=== PATIENT | male | born 1935 | race Caucasian/White ===

== ENCOUNTER 2016-07-24 13:47 | Observation (INO) | payer MEDICARE, OTHER ==
[2016-07-24 14:24] LABS: Mean Cell Volume 92.3 fl (78-100); Mean Corpuscular Hemoglobin 27.1 pg (27-31); Mean Corpuscular Hgb Conc 29.4 g/dl (32-36); Mean Platelet Volume 8.6 fl (6.0-9.5); Neutrophil # 2.4 K/mm3 (1.3-6.0); Neutrophil % 64.1 % (42-75.0); Platelet Count 284 K/mm3 (150-450); Red Blood Count 2.47 M/mm3 (4.7-6.0); Red Cell Distribution Width 15.6 % (11.5-14.0); White Blood Count 3.7 K/mm3 (4.0-10.5)
[2016-07-24 14:32] LABS: Hemoglobin 6.7 gm/dL (13.5-18.0)
[2016-07-24 14:33] LABS: Hematocrit 22.8 % (42.0-52.0)
[2016-07-24 14:38] LABS: Albumin * 3.6 gm/dl (3.4-5.0); Anion Gap 10.3 mmol/L (6.8-13.8); BUN/Creatinine Ratio 16.4 (9.0-21.6); Bilirubin, Total 0.3 mg/dL (0.0-1.1); Carbon Dioxide 30.4 mmol/L (24-32.6); Potassium 4.7 mmol/L (3.4-4.6); Total Protein 6.6 gm/dL (6.2-8.2)
--- NOTE | 2016-07-24 14:52 | ERNOTE ---
Medical Problem HPI - General Chief Complaint: General Assessment Time Seen by Provider: 07/24/16 14:39 Source: patient, family Exam Limitations: no limitations - Immun/Allergies/Home Medications Immunizations: IMMUNIZATION HX Immunizations Up to Date Yes History of Influenza Vaccine No Hx Pneumococcal Vaccination No Allergies/Adverse Reactions: Allergies nickel Adverse Reaction (Mild, Verified 01/15/15 12:50) RASH Home Medications: HOME MEDICATIONS Sertraline HCl [Zoloft] 50 mg PO DAILY 12/16/13 [Last Taken 05/26/15] Cholecalciferol (Vitamin D3) [Vitamin D3] 2,000 unit PO DAILY 03/06/14 [Last Taken 05/26/15] Atorvastatin Calcium [Lipitor] 20 mg PO HS 07/02/14 [Last Taken 05/26/15] Lisinopril [Zestril] 40 mg PO BID 07/02/14 [Last Taken 05/26/15] Pantoprazole Sodium [Protonix] 40 mg PO BIDAC #30 tab 10/27/14 [Last Taken ] Cyanocobalamin [Vitamin B-12] 500 mcg PO DAILY 12/12/14 [Last Taken 05/26/15] Aspirin [Aspirin Enteric Coated] 325 mg PO DAILY 01/14/15 [Last Taken 05/26/15] - History of Present History Narrative: Patient presents with progressive weakness and loss of overall stamina and energy. Patient was seen at [facility] earlier today and was found to have a hemoglobin of 7.1 for them. Patient was sent in to the emergency room for further evaluation and likely blood transfusion. Timing: constant Severity: mild Modifying Factors - (Worsens): Present: movement Review of Systems - Review of Systems Constitutional: Present: See HPI, weakness, fatigue EYE: Present: no symptoms reported ENT: Present: no symptoms reported Respiratory: Present: no symptoms reported Cardiology: Present: no symptoms reported Gastrointestinal/Abdominal: Present: no symptoms reported Genitourinary: Present: no symptoms reported Musculoskeletal: Present: no symptoms reported Skin: Present: no symptoms reported Neurological: Present: no symptoms reported Endocrine: Present: no symptoms reported Hematologic/Lymphatic: Present: no symptoms reported Psych: Present: no symptoms reported - Patient's Past Medical History Patient History - Medical: Anemia, Cataracts, GERD, Renal Disease Patient History - Cardiac/Respiratory: Hypertension, Hyperlipidemia Patient History - Cancer: No Hx of Cancer Patient History - Surgical Procedures: Colonoscopy, EGD, Other Patient History - Other: None - Family History Mother Family History - Medical: Family History - Cardiac/Respiratory: History Unknown Brother Family History - Medical: Diabetes Type 2 Family History - Cardiac/Respiratory: Hypertension Father Family History - Medical: , No pertinent hx Family History - Cardiac/Respiratory: Cardiac Arrest - Social History Living Situations: spouse Abuse History: No History of abuse Psych History: Hx of Anxiety, Current tx/ever been on anti-depressants or anti- anxiety meds Smoking Status: Never smoker Do you dip or chew tobacco: No Alcohol Use: none Drug Use: none - Immunizations Immunizations Up to Date: Yes Hx Pneumococcal Vaccination: No History of Influenza Vaccine: No Physical Exam - Physical Exam General Appearance: Present: wd/wn, alert, no apparent distress Eye Exam: Normal inspection: bilateral, PERRL: bilateral Ears, Nose, Throat: Present: normal ENT inspection, H, normal pharynx Neck: Present: normal inspection, nontender Respiratory: Present: no respiratory distress, normal breath sounds, no accessory muscle use, chest nontender, lungs clear Cardiovascular/Chest: Present: no murmur, normal peripheral pulses, bradycardia Gastrointestinal/Abdominal: Present: normal bowel sounds, nontender, nondistended, soft, no organomegaly Rectal Exam: Present: normal rectal tone, normal prostate Back Exam: Present: normal inspection, normal range of motion Extremity Exam: Present: normal inspection, non-tender, no edema, normal range of motion Neurological Exam: Present: alert, oriented, normal mood/affect Skin Exam: Present: normal color, warm/dry Lymphatic Exam: Present: no adenopathy ED Progress - Results and Orders Patient's Lab Results:: I have reviewed the patient's lab results. - Vital Signs Patient's Vital Signs:: I have reviewed the patient's vital signs. Vital Signs: Vital Signs 07/24/16 13:56 Temperature 36.6 C Pulse Rate 50 L Respiratory 14 Rate Blood Pressure 164/76 O2 Sat by Pulse 96 Oximetry - Progress/Reassessment Chief Complaint: General Assessment Plan - Plan Plan: While the patient is chronically anemic, unclear etiology for the precipitous drop in his hemoglobin. Patient will be admitted to an observation. He will be transfused 2 units of packed red blood cells and hemoglobin will be checked tomorrow morning. I suspect his weakness and lack of stamina is coming from his anemia. Departure - Departure Clinical Impression: Anemia Qualifiers: Anemia type: unspecified type Qualified Code(s): D64.9 - Anemia, unspecified Disposition: [facility] Condition: Fair
--- OUTSIDE RECORDS SUMMARY | 2016-07-24 15:05 | XMS REPORT | Continuity of Care Document ---
:1935 Author Organization [facility] ([facility]) Address [address] [address] Phone [phone] Care Team Providers Name Role Phone Rashawn Ortiz Primary Care Provider [phone] Source Comments This disclosure is being made pursuant to the Care Everywhere program, applicable federal and state laws, and may not contain all informaitonavailable regarding this patient.[facility] ([facility]) Active Allergies and Adverse Reactions No Known Allergies Current Medications Prescription Sig. Disp. Refills Start Date End Date Status aspirin, buffered 325 mg Take 325 mg by Active tablet mouth daily SERTraline 50 mg tablet Take 50 mg by Active mouth daily lisinopril 40 mg tablet Take 40 mg by Active mouth 2 times daily ferrous sulfate 325 mg Take 325 mg by Active (65 mg iron) tablet mouth daily cholecalciferol (VITAMIN Active D3) PO cyanocobalamin (VITAMIN Active B-12) PO atorvastatin 40 mg Take 40 mg by Active tablet mouth every evening amLODIPine 10 mg tablet Take 1 tablet 90 tablet 3 12/25/2014 Active (10 mg total) by mouth daily Active Problems Problem Noted Date Pulmonary hypertension 12/25/2014 Orthostatic hypotension 12/10/2014 Essential hypertension 12/10/2014 Hyperlipidemia 12/10/2014 Stenosis of left carotid artery 12/10/2014 Social History Tobacco Use Types Packs/Day Years Used Date Former Smoker Cigars Quit: 12/12/2011 Smokeless Tobacco: Never Used Tobacco Cessation:Counseling Given: Yes Comments: Last Filed Vital Signs Vital Sign Reading Time Taken Blood Pressure 120/60 02/19/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 Pulse 56 02/19/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 Temperature - - Respiratory Rate 18 12/11/2014 12:14 PM CDT Height 1.778 m (5' 10") 12/25/2014 12:57 PM CDT Weight 90.266 kg (199 lb) 02/19/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
--- OUTSIDE RECORDS SUMMARY | 2016-07-24 15:06 | XMS REPORT | Continuity of Care Document ---
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
[2016-07-24] MEDS: PANTOPRAZOLE SODIUM 40 MG TABLET.EC PO SCH (18:33)
[2016-07-24] MEDS: ROSUVASTATIN CALCIUM 10 MG TABLET PO SCH ×2 (18:33→20:48)
[2016-07-24] MEDS ORDERED: LISINOPRIL 10 MG TABLET ONE (20:55)
[2016-07-24] MEDS: LISINOPRIL 40 MG TABLET PO SCH (20:57)
--- NOTE | 2016-07-24 23:45 | HP ---
Chief Complaint - Chief Complaint Date of Service: 07/24/16 Time of Service: 16:25 Chief Complaint: Weakness, fatigue History of Present Illness: Wes is an 81 yo male, patient of Dr. Johansen, with known CKD and chronic anemia. He was seen at nephrology today where hgb was found to be 7.1. He reports fatigue and weakness that have been worsening. Review of records show that nephrology has suspected anemia to be more significant than his chronic kidney disease and had recommended hematology referral. Wes has not seen hematology as of this time. He denies visualized bleeding. - Patient's Past Medical History Patient History - Medical: Anemia, Cataracts, GERD, Renal Disease Patient History - Cardiac/Respiratory: Hypertension, Hyperlipidemia Patient History - Cancer: No Hx of Cancer Patient History - Surgical Procedures: Colonoscopy, EGD Patient History - Other: None - Family History Mother Family History - Medical: Family History - Cardiac/Respiratory: History Unknown Family History - Cancer: No pertinent family hx Brother Family History - Medical: Diabetes Type 2 Family History - Cardiac/Respiratory: Hypertension Family History - Cancer: No pertinent family hx Father Family History - Medical: , No pertinent hx Family History - Cardiac/Respiratory: Cardiac Arrest Family History - Cancer: No pertinent family hx - Social History Living Situations: home Abuse History: No History of abuse Psych History: Hx of Anxiety, Current tx/ever been on anti-depressants or anti- anxiety meds Smoking Status: Never smoker Have you smoked in the past 12 months: No Do you dip or chew tobacco: No Initiate information on Smoking Cessation: No Alcohol Use: none Drug Use: none - Immunizations Immunizations Up to Date: Yes Hx Pneumococcal Vaccination: No History of Influenza Vaccine: No Review Of Systems (GEN) - Review of Systems Generalized/Overall Review: Present: Weakness, Fatigue. Absent: Chills, Fever EENTM: Present: No Symptoms Reported Respiratory: Present: No Symptoms Reported Cardiac: Present: No Symptoms Reported Abdominal: Present: No Symptoms Reported Genitourinary: Present: No Symptoms Reported Musculoskeletal: Present: No Symptoms Reported Neurological: Present: No Symptoms Reported Skin: Present: No Symptoms Reported Endocrine: Present: No Symptoms Reported Immunizations: IMMUNIZATION HX Immunizations Up to Date Yes History of Influenza Vaccine No Hx Pneumococcal Vaccination No Allergies/Adverse Reactions: Allergies Allergy/AdvReac Type Severity Reaction Status Date / Time nickel AdvReac Mild RASH Verified 07/24/16 16:16 Home Medications: HOME MEDICATIONS Sertraline HCl [Zoloft] 50 mg PO DAILY 12/16/13 [Last Taken 05/26/15] Cholecalciferol (Vitamin D3) [Vitamin D3] 2,000 unit PO DAILY 03/06/14 [Last Taken 05/26/15] Cyanocobalamin [Vitamin B-12] 500 mcg PO DAILY 12/12/14 [Last Taken 05/26/15] Aspirin [Aspirin Enteric Coated] 325 mg PO DAILY 01/14/15 [Last Taken 05/26/15] Amlodipine Besylate 5 mg PO BID 07/24/16 [Last Taken Unknown] Atorvastatin Calcium [Lipitor] 40 mg PO HS 07/24/16 [Last Taken Unknown] Famotidine 20 mg PO BID 07/24/16 [Last Taken Unknown] hydrALAZINE HCL [Hydralazine HCl] 10 mg PO BID 07/24/16 [Last Taken Unknown] Lisinopril [Zestril] 10 mg PO BID #.1 tablet 08/03/16 [Last Taken Unknown] Exam - Exam Vital Signs: Vital Signs - Last Taken Temp 37.2 C 07/24/16 21:36 Pulse 50 L 07/24/16 21:36 Resp 20 07/24/16 21:36 BP 160/85 07/24/16 21:36 Pulse Ox 95 07/24/16 21:36 Constitutional: Present: Alert, Oriented x3, Cooperative ENT Exam: Present: hearing grossly normal Eye Exam: bilateral eye: normal inspection Respiratory: Present: lungs clear, normal breath sounds Cardiovascular/Chest: Present: regular rate, rhythm, no murmur Abdomen: Present: Normal bowel sounds, soft, nontender, nondistended Extremity: Present: normal inspection Skin Exam: Present: normal color, warm/dry, no cyanosis Diagnostic Studies: Abnormal Lab Results 07/24/16 Range/Units 15:13 Stool Occult Blood Positive H Laboratory Results WBC 3.7 K/mm3 (4.0-10.5) L 07/24/16 14:15 RBC 2.47 M/mm3 (4.7-6.0) L 07/24/16 14:15 Hgb 6.7 gm/dL (13.5-18.0) L* D 07/24/16 14:15 Hct 22.8 % (42.0-52.0) L* D 07/24/16 14:15 MCV 92.3 fl (78-100) 07/24/16 14:15 MCH 27.1 pg (27-31) 07/24/16 14:15 MCHC 29.4 g/dl (32-36) L 07/24/16 14:15 RDW 15.6 % (11.5-14.0) H 07/24/16 14:15 Plt Count 284 K/mm3 (150-450) 07/24/16 14:15 MPV 8.6 fl (6.0-9.5) 07/24/16 14:15 Immature Gran % (Auto) 0.30 % (0.001-0.429) 07/24/16 14:15 Immature Gran # (Auto) 0.01 K/mm3 (0.000-0.0310) 07/24/16 14:15 Neutrophils % 64.1 % (42-75.0) 07/24/16 14:15 Lymphocytes % 22.3 % (20-51) 07/24/16 14:15 Monocytes % 10.6 % (0.0-9) H 07/24/16 14:15 Eosinophils % 1.9 % (0.0-3.0) 07/24/16 14:15 Basophils % 0.8 % (0.0-1.0) 07/24/16 14:15 Nucleated RBC % 0.0 k/mm3 (0-1) 07/24/16 14:15 Neutrophils # 2.4 K/mm3 (1.3-6.0) 07/24/16 14:15 Lymphocytes # 0.8 k/mm3 (1.5-3.5) L 07/24/16 14:15 Monocytes # 0.4 k/mm3 (0.0-1.0) 07/24/16 14:15 Eosinophils # 0.1 k/mm3 (0.0-0.7) 07/24/16 14:15 Absolute Basophils 0.0 k/mm3 (0.0-0.1) 07/24/16 14:15 Sodium 146 mmol/L (132-142) H 07/24/16 14:15 Plasma Sodium 146 mmol/L (130-142) H 07/24/16 14:15 Potassium 4.7 mmol/L (3.4-4.6) H 07/24/16 14:15 Chloride 110 mmol/L (97-106) H 07/24/16 14:15 Carbon Dioxide 30.4 mmol/L (24-32.6) 07/24/16 14:15 Anion Gap 10.3 mmol/L (6.8-13.8) 07/24/16 14:15 BUN 35 mg/dL (6-23) H 07/24/16 14:15 Creatinine 2.14 mg/dL (0.4-1.4) H 07/24/16 14:15 Est GFR (Non-Af Amer) 32 mL/min (60-130) L 07/24/16 14:15 BUN/Creatinine Ratio 16.4 (9.0-21.6) 07/24/16 14:15 Random Glucose 122 mg/dL (70-110) H 07/24/16 14:15 Calcium 9.0 mg/dL (7.9-10.9) 07/24/16 14:15 Calcium Adj for Albumin 9.0 mg/dL (8.4-10.2) 07/24/16 14:15 Total Bilirubin 0.3 mg/dL (0.0-1.1) 07/24/16 14:15 AST 21 U/L (0-48) 07/24/16 14:15 ALT 20 U/L (19-67) 07/24/16 14:15 Alkaline Phosphatase 77 U/L (50-170) 07/24/16 14:15 Total Protein 6.6 gm/dL (6.2-8.2) 07/24/16 14:15 Albumin 3.6 gm/dl (3.4-5.0) 07/24/16 14:15 Stool Occult Blood Positive H 07/24/16 15:13 Blood Type O Positive 07/24/16 14:15 Antibody Screen Negative 07/24/16 14:15 Crossmatch See Detail 07/24/16 14:15 Assessment/Plan - Assessment/Plan (1) Anemia Assessment: Wes is an 81 yo male that presented to the ER with Anemia. Hemoglobin was found to be 6.7 which was worse than earlier today of 7.1 ( although from a different lab). 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 He has not seen hematology at this point. Hemoccult stool is positive. No gross bleeding is evidence per the patient. Due to hgb of 6.7 will transfuse 2 units of pRBCs and monitor Hgb. Suspect this is acute worsening of a chronic condition and expect to transfuse and be able to discharge to home tomorrow if stable. Expect 1 midnight, will admit to observation. Problem: Chronic Qualifiers: Anemia type: unspecified type Qualified Code(s): D64.9 - Anemia, unspecified (2) CKD (chronic kidney disease) stage 3, GFR 30-59 ml/min Problem: Chronic
[2016-07-25] MEDS ORDERED: FUROSEMIDE 10 MG/ML VIAL IV ONE (00:29)
[2016-07-25 01:22] LABS: Hematocrit 26.2 % (42.0-52.0); Hemoglobin 8.1 gm/dL (13.5-18.0)
[2016-07-25 06:09] LABS: Hematocrit 27.1 % (42.0-52.0); Hemoglobin 8.3 gm/dL (13.5-18.0); Mean Cell Volume 87.1 fl (78-100); Mean Corpuscular Hemoglobin 26.7 pg (27-31); Mean Corpuscular Hgb Conc 30.6 g/dl (32-36); Neutrophil % 56.4 % (42-75.0); Platelet Count 257 K/mm3 (150-450); Red Blood Count 3.11 M/mm3 (4.7-6.0); White Blood Count 3.6 K/mm3 (4.0-10.5)
[2016-07-25 06:24] LABS: Anion Gap 9.5 mmol/L (6.8-13.8); BUN/Creatinine Ratio 16.8 (9.0-21.6); Calcium * 9.1 mg/dL (7.9-10.9); Carbon Dioxide 29.3 mmol/L (24-32.6); Estimated Creat Clear 32.4; Potassium 4.8 mmol/L (3.4-4.6)
[2016-07-25] MEDS: PANTOPRAZOLE SODIUM 40 MG TABLET.EC PO SCH (07:00)
[2016-07-25] MEDS: LISINOPRIL 40 MG TABLET PO SCH (08:11)
[2016-07-25] MEDS ORDERED: FAMOTIDINE 20 MG TABLET PO SCH (09:00)
[2016-07-25] MEDS ORDERED: SERTRALINE HCL 50 MG TABLET PO SCH (09:00)
[2016-07-25] MEDS ORDERED: hydrALAZINE HCL 10 MG TABLET PO SCH (09:00)
[2016-07-25] MEDS ORDERED: amLODIPine BESYLATE 5 MG TABLET PO SCH (09:00)
[2016-07-25] MEDS ORDERED: CHOLECALCIFEROL 1,000 UNIT CAPSULE PO SCH (09:00)
[2016-07-25] MEDS ORDERED: CYANOCOBALAMIN 1,000 MCG TABLET PO SCH (09:00)
[2016-07-25 10:14] VITALS: BP 142/56
--- NOTE | 2016-07-25 10:51 | DS ---
(1) Anemia Diagnosis(s): Wes is an 81 yo male that was admitted for hemoglobin of 6.7. This is an acute worsening of his chronic anemia. Anemia is suspected to be from CKDIII. However nephrology feels his Hgb is significantly lower than would be explained by his CKDIII and had recommended him to see hematology for consideration of a bone marrow biopsy. He has not seen gross bleeding. He was admitted due to the acute change and positive hemoccult stool. He was transfused 2 units of pRBCs and had serial hemoglobin. These were unchanged and he had no evidence of significant active bleeding. He will be discharged to home. He will follow up with nephrology and will be referred to hematology. He will be referred to general surgery for colonoscopy and EGD to evaluate for other causes of anemia, especially considering the hemoccult positive stool. Problem: Chronic Qualifiers: Anemia type: unspecified type Qualified Code(s): D64.9 - Anemia, unspecified Procedures Performed: none Discharge Disposition: Home self care Disposition: Home self-care Condition: Good Discharge Activity: Activity as tolerated Discharge Diet: General/regular food Referrals: Ishaan Alford MD [Staff Physician] - (Colonoscopy/EGD? Next available (can't do 08/04/16)) Rashawn Ortiz MD [Primary Care Provider] - One Week (Can't do 08/04/16) Problem Oriented Discharge Instructions to Patient/Family: Anemia, Nonspecific Additional Patient Instructions (free text): Continue all home medications, no changes made. Follow up with Nephrology on 08/04/16 to discuss hematology referral. Needs endoscopy evaluation with anemia and blood positive stools. [facility] will call you on Tuesday with follow up appointments. Complete Home Medications List: Complete Home Medication List: Sertraline HCl [Zoloft] 50 mg PO DAILY 12/16/13 Cholecalciferol (Vitamin D3) [Vitamin D3] 2,000 unit PO DAILY 03/06/14 Cyanocobalamin [Vitamin B-12] 500 mcg PO DAILY 12/12/14 Aspirin [Aspirin Enteric Coated] 325 mg PO DAILY 01/14/15 Amlodipine Besylate 5 mg PO BID 07/24/16 Atorvastatin Calcium [Lipitor] 40 mg PO HS 07/24/16 Famotidine 20 mg PO BID 07/24/16 hydrALAZINE HCL [Hydralazine HCl] 10 mg PO BID 07/24/16 Lisinopril [Zestril] 10 mg PO BID #.1 tablet 08/03/16
[2016-07-25] MEDS ORDERED: ATORVASTATIN CALCIUM 40 MG TABLET PO SCH (21:00)
== END 2016-07-25 12:30 | disposition home or self-care (01) ==
LOC: ER 13:47 → MS 15:02
PROVIDERS: ADMIT Family Medicine; ATTEND Family Medicine
PROC: 30233N1 Transfusion of Nonautologous Red Blood Cells into Peripheral Vein, Percutaneous Approach (ICD-10-PCS; principal; 2016-07-24)
DX: D64.9 Anemia, unspecified (principal); K92.1 Melena; I12.9 Hypertensive chronic kidney disease with stage 1 through stage 4 chronic kidney disease, or unspecified chronic kidney disease; N18.3 Chronic kidney disease, stage 3 (moderate); D63.1 Anemia in chronic kidney disease; E78.5 Hyperlipidemia, unspecified; K21.9 Gastro-esophageal reflux disease without esophagitis
CPT/HCPCS: 36415; 36430; 80048; 80053; 82272; 85014; 85018; 85025; 86850; 86900; 96374; 99282; G0378; P9016

== ENCOUNTER 2016-08-02 12:16 | Observation (INO) | payer MEDICARE, OTHER ==
--- OUTSIDE RECORDS SUMMARY | 2016-08-02 12:20 | XMS REPORT | Continuity of Care Document ---
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
[2016-08-02] MEDS ORDERED: diphenhydrAMINE HCL 50 MG/ML VIAL IV ONE (14:00)
[2016-08-02] MEDS ORDERED: METHYLPREDNISOLONE SOD SUCC 30 MG in WATER FOR INJ.,BACTERIOSTATIC 0 ML IV ONE (14:00)
[2016-08-02] MEDS: DEXTROSE 5 % IN WATER 1,000 ML IV PRN ×2 (14:14→20:51)
[2016-08-02] MEDS ORDERED: FERUMOXYTOL 510 MG in NORMAL SALINE 100 ML IV ONE (14:30)
[2016-08-02] MEDS ORDERED: FERUMOXYTOL 30 MG/ML VIAL IV ONE (14:30)
--- NOTE | 2016-08-02 16:57 | HP ---
Addendum entered and electronically signed by Marcelle Tavarez ARNP 08/02/16 17: 12: Original Note: Chief Complaint - Chief Complaint Date of Service: 08/02/16 Time of Service: 15:35 Chief Complaint: fatigue, dehydration History of Present Illness: Wes is an 81 year old male patient of Dr. Ortiz with a PMH of CKD stage 3, anemia (iron def and B12 def), carotid stenosis s/p left carotid stent 08/2013, GERD, HTN, and HLD that present to Dr. Ortiz's office today with c/o of fatigue. Outpatient labs revealed significant dehydration and CLARISSE. Patient will be admitted for observation and IV hydration. - Patient's Past Medical History Patient History - Medical: Anemia, Cataracts, GERD, Renal Disease Patient History - Cardiac/Respiratory: Hypertension, Hyperlipidemia Patient History - Cancer: No Hx of Cancer Patient History - Surgical Procedures: Colonoscopy, EGD, Other Patient History - Other: None - Family History Mother Family History - Medical: Family History - Cardiac/Respiratory: History Unknown Family History - Cancer: No pertinent family hx Brother Family History - Medical: Diabetes Type 2 Family History - Cardiac/Respiratory: Hypertension Family History - Cancer: No pertinent family hx Father Family History - Medical: , No pertinent hx Family History - Cardiac/Respiratory: Cardiac Arrest Family History - Cancer: No pertinent family hx - Social History Living Situations: home Abuse History: No History of abuse Psych History: Hx of Anxiety, Current tx/ever been on anti-depressants or anti- anxiety meds Alcohol Use: none Drug Use: none - Immunizations Immunizations Up to Date: Yes Hx Pneumococcal Vaccination: No History of Influenza Vaccine: No Review Of Systems (GEN) - Review of Systems Generalized/Overall Review: Present: Fatigue EENTM: Present: No Symptoms Reported Respiratory: Present: No Symptoms Reported Cardiac: Present: No Symptoms Reported Abdominal: Present: No Symptoms Reported Genitourinary: Present: No Symptoms Reported Musculoskeletal: Present: No Symptoms Reported Neurological: Present: No Symptoms Reported Skin: Present: No Symptoms Reported Endocrine: Present: No Symptoms Reported Misc: All systems neg except as marked Immunizations: IMMUNIZATION HX Immunizations Up to Date Yes History of Influenza Vaccine No Hx Pneumococcal Vaccination No Allergies/Adverse Reactions: Allergies Allergy/AdvReac Type Severity Reaction Status Date / Time nickel AdvReac Mild RASH Verified 07/24/16 16:16 Home Medications: HOME MEDICATIONS Sertraline HCl [Zoloft] 50 mg PO DAILY 12/16/13 [Last Taken 05/26/15] Cholecalciferol (Vitamin D3) [Vitamin D3] 2,000 unit PO DAILY 03/06/14 [Last Taken 05/26/15] Lisinopril [Zestril] 40 mg PO BID 07/02/14 [Last Taken 05/26/15] Cyanocobalamin [Vitamin B-12] 500 mcg PO DAILY 12/12/14 [Last Taken 05/26/15] Aspirin [Aspirin Enteric Coated] 325 mg PO DAILY 01/14/15 [Last Taken 05/26/15] Amlodipine Besylate 5 mg PO BID 07/24/16 [Last Taken Unknown] Atorvastatin Calcium [Lipitor] 40 mg PO HS 07/24/16 [Last Taken Unknown] Famotidine 20 mg PO BID 07/24/16 [Last Taken Unknown] hydrALAZINE HCL [Hydralazine HCl] 10 mg PO BID 07/24/16 [Last Taken Unknown] Exam - Exam Vital Signs: Vital Signs - Last Taken Temp 37.1 C 07/25/16 10:13 Pulse Resp BP 142/56 07/25/16 10:13 Pulse Ox Constitutional: Present: Alert, Oriented x3, Cooperative, No distress ENT Exam: Present: hearing grossly normal Eye Exam: bilateral eye: normal inspection Neck: Present: full range of motion, supple Back Exam: Present: normal inspection, no vertebral tenderness Respiratory: Present: chest non-tender, lungs clear, normal breath sounds, no respiratory distress Cardiovascular/Chest: Present: normal peripheral pulses, regular rate, rhythm Peripheral Pulses: dorsalis-pedis (R): 2+, dorsalis-pedis (L): 2+, radial (R): 2 +, radial (L): 2+ Abdomen: Present: soft, nontender, nondistended Extremity: Present: non-tender, normal inspection Skin Exam: Present: normal color, warm/dry, no cyanosis Diagnostic Studies: Laboratory Tests 08/02/16 08/02/16 08/02/16 10:48 10:48 10:48 WBC 3.2 L RBC 3.63 L Hgb 9.8 L Hct 32.2 L Plt Count 297 Neutrophils % 64.2 Sodium 144 H Potassium 5.4 H Chloride 110 H Carbon Dioxide 28.1 BUN 46 H Creatinine 2.24 H Est GFR (Non-Af Amer) 30 L Random Glucose 111 H Calcium 9.4 Phosphorus 3.8 Magnesium 2.3 Iron 61 TIBC 395 Transferrin % Sat 15 Assessment/Plan - Narrative Narrative: Acute Kidney Injury / Chronic Kidney Disease - Stage 3 - secondary to dehydration due to poor oral intake - rehydrate with IV fluids - due to hypernatremia, will rehydrate with D5W - Recheck labs in the am. - Creatinine on admission (08/02/16) is 2.24, baseline runs 1.4-1.6. Dehydration - due to poor oral intake - rehydrate with IV fluids - check labs in the am. Hypernatremia - likely due to unreplaced water loss - rehydrate with IV fluids - currently receiving D5W - check labs in the am. Hyperkalemia - likely due to volume depletion secondary to poor oral intake in the setting of acute on chronic kidney disease. - rehydrate with IV fluids - currently receiving D5W - checks labs in the am. Iron deficiency anemia - iron saturation at 15% per iron panel done 08/02/16 - Fereheme 510 mg given IV x1 on 08/02/16 - premedicated with benadryl 25 mg iv x1, infused without reaction. Chronic Medical Issues - Hypertension - stable - monitor bp q 4 hours - HLD - stable. Code Status: Full Code VTE: early ambulation GI proph: on pepcid bid at home. - Assessment/Plan (1) CLARISSE (acute kidney injury) Problem: Acute (2) Dehydration Problem: Acute (3) CKD (chronic kidney disease) stage 3, GFR 30-59 ml/min Problem: Chronic (4) Iron deficiency anemia Problem: Chronic Qualifiers: Iron deficiency anemia type: unspecified iron deficiency Qualified Code(s) : D50.9 - Iron deficiency anemia, unspecified (5) Acute hypernatremia Problem: Acute (6) Hyperkalemia Problem: Acute (7) Hypertension Problem: Chronic Qualifiers: Hypertension type: essential hypertension Qualified Code(s): I10 - Essential (primary) hypertension (8) Hyperlipemia Problem: Chronic Qualifiers: Hyperlipidemia type: unspecified Qualified Code(s): E78.5 - Hyperlipidemia , unspecified
[2016-08-02] MEDS ORDERED: INFLUENZA VACCINE 60 MCG/0.5 ML IM ONE (17:00)
[2016-08-02] MEDS ORDERED: ATORVASTATIN CALCIUM 40 MG TABLET PO SCH (23:15)
[2016-08-02] MEDS ORDERED: LISINOPRIL 10 MG TABLET ONE (23:29)
[2016-08-02] MEDS ORDERED: LISINOPRIL 20 MG TABLET PO SCH (23:30)
[2016-08-02] MEDS ORDERED: ATORVASTATIN CALCIUM 40 MG TABLET ONE (23:31)
[2016-08-02] MEDS: amLODIPine BESYLATE 5 MG TABLET PO SCH (23:34)
[2016-08-02] MEDS: hydrALAZINE HCL 10 MG TABLET PO SCH (23:37)
[2016-08-03] MEDS: DEXTROSE 5 % IN WATER 1,000 ML IV PRN ×2 (03:34→10:18)
[2016-08-03 05:56] LABS: Hematocrit 27.7 % (42.0-52.0); Hemoglobin 8.6 gm/dL (13.5-18.0); Mean Cell Volume 86.8 fl (78-100); Mean Platelet Volume 8.5 fl (6.0-9.5); Neutrophil % 80.4 % (42-75.0); Platelet Count 230 K/mm3 (150-450); Red Blood Count 3.19 M/mm3 (4.7-6.0); Red Cell Distribution Width 15.3 % (11.5-14.0)
[2016-08-03 06:09] LABS: Anion Gap 12.4 mmol/L (6.8-13.8); BUN/Creatinine Ratio 20.2 (9.0-21.6); Calcium * 8.9 mg/dL (7.9-10.9); Carbon Dioxide 25.7 mmol/L (24-32.6); Estimated Creat Clear 35.8; Potassium 5.1 mmol/L (3.4-4.6)
[2016-08-03] MEDS: hydrALAZINE HCL 10 MG TABLET PO SCH (08:56)
[2016-08-03] MEDS: amLODIPine BESYLATE 5 MG TABLET PO SCH (08:58)
[2016-08-03] MEDS ORDERED: FAMOTIDINE 20 MG TABLET PO SCH (09:00)
[2016-08-03] MEDS ORDERED: CHOLECALCIFEROL 1,000 UNIT CAPSULE PO SCH (09:00)
[2016-08-03] MEDS ORDERED: CYANOCOBALAMIN 1,000 MCG TABLET PO SCH (09:00)
[2016-08-03] MEDS ORDERED: ASPIRIN 81 MG TABLET.DR PO SCH (09:00)
[2016-08-03] MEDS ORDERED: SERTRALINE HCL 50 MG TABLET PO SCH (09:00)
--- NOTE | 2016-08-03 09:53 | DS ---
(1) CLARISSE (acute kidney injury) Diagnosis(s): due to dehydration with hypernatremia, hyperchloremia and hyperkalemia Problem: Acute (2) Iron deficiency anemia Diagnosis(s): T sat 15%; given Feraheme 510 mg IV 1 after being premedicated with diphenhydramine 25 mg IV 1 and Solu-Medrol 30 mg IV 1. Problem: Chronic Qualifiers: Iron deficiency anemia type: unspecified iron deficiency Qualified Code(s) : D50.9 - Iron deficiency anemia, unspecified (3) Hypertension Problem: Chronic Qualifiers: Hypertension type: essential hypertension Qualified Code(s): I10 - Essential (primary) hypertension (4) Hyperlipidemia Problem: Acute Qualifiers: Hyperlipidemia type: unspecified Qualified Code(s): E78.5 - Hyperlipidemia , unspecified (5) Carotid artery disease Diagnosis(s): LEFT carotid endarterectomy Problem: Chronic Description of Stay: DATE OF ADMISSION: 08/02/2016. DATE OF DISCHARGE: 08/03/2016. HOSPITAL COURSE: Wes Hoff is a 81-year-old WM with a history of HTN, HLD, CKD stage III/IV, anemia due to iron/B12 deficiency and carotid artery disease [ LT carotid endarterectomy in 2013] who came into the office for a follow-up after being admitted for anemia [with H&H 6.7/22.8 on 07/24/2016; transfuse with PRBC 2 with H&H posttransfusion being 8.1/26.2 on 07/25/2016]. Patient complained of dizziness and lightheadedness especially while standing up. Labs revealed increased BUN/CR 46/2.24. Patient was admitted for IV fluids. Patient was given D5W at 150 mL an hour. He did have a EGD/colonoscopy in 06/2014[colonoscopy revealing severe diverticulosis; EGD showing gastritis with erosions and friability]. Patient was on PPIs in the past, currently on H2 blockers because of CKD. T sat 15%. Patient was given Feraheme 510 mg IV 1 after being premedicated with diphenhydramine 25 mg IV 1 and Solu-Medrol 30 mg IV 1. Patient tolerated the transfusion well. Lisinopril 20 mg at bedtime was changed to 10 mg PO BID. Discussed with Sofie Conner NP the changes in medications and the possibility of Epogen/Aranesp in the future. BUN/CR improved to 37/1.78 at the time of discharge. He was discharged in a stable condition. A total of 50 minutes was spent in this encounter-including examination of the patient, discussing plan of care, reconciliation of medications preparation and dictating discharge summary. Also discussed the case with Sofie Conner COREMAKER in nephrology. Procedures Performed: none Results and Findings: Laboratory Tests 07/24/16 08/02/16 08/03/16 14:15 10:48 05:56 WBC 3.7 L 3.2 L 5.0 D Hgb 6.7 L* D 9.8 L 8.6 L Hct 22.8 L* D 32.2 L 27.7 L Plt Count 284 297 230 07/25/16 08/02/16 08/03/16 05:45 10:48 05:56 Plasma Sodium 144 H 144 H 142 Potassium 4.8 H 5.4 H 5.1 H Chloride 110 H 110 H 107 H Carbon Dioxide 29.3 28.1 25.7 BUN 33 H 46 H 36 H Creatinine 1.96 H 2.24 H 1.78 H D Est GFR (Non-Af Amer) 35 L 30 L 39 L D 08/02/16 10:48 Iron 61 TIBC 395 Transferrin % Sat 15 Vitamin B12 1022 H Discharge Disposition: Home self care Disposition: Home self-care Condition: Undetermined Discharge Activity: Activity as tolerated Discharge Diet: Low salt, Low fat/chol, High Fiber Referrals: Rashawn Ortiz MD [Primary Care Provider] - Problem Oriented Discharge Instructions to Patient/Family: Acute Kidney Injury Additional Patient Instructions (free text): Appointment with Sofie Conner on TuesdayAugust 10 at 10:30 at [facility]. Patient encouraged to drink between 2-3 L of water in 24 hours. Appt with in 10 days with [facility]. Follow up with Dr. Ortiz 08/13 at 10:00 Please have Labs done ONE day before appt. NEW/ CHANGES IN MEDS: Lisinopril 20 mg at HS changed to 10 mg PO BID. MEDS DISCONTINUED : Lisinopril 20 mg PO HS. Prescriptions (Any new or edited meds): Lisinopril [Zestril] 10 mg PO BID #.1 tablet Complete Home Medications List: Complete Home Medication List: Sertraline HCl [Zoloft] 50 mg PO DAILY 12/16/13 Cholecalciferol (Vitamin D3) [Vitamin D3] 2,000 unit PO DAILY 03/06/14 Cyanocobalamin [Vitamin B-12] 500 mcg PO DAILY 12/12/14 Aspirin [Aspirin Enteric Coated] 325 mg PO DAILY 01/14/15 Amlodipine Besylate 5 mg PO BID 07/24/16 Atorvastatin Calcium [Lipitor] 40 mg PO HS 07/24/16 Famotidine 20 mg PO BID 07/24/16 hydrALAZINE HCL [Hydralazine HCl] 10 mg PO BID 07/24/16 Lisinopril [Zestril] 10 mg PO BID #.1 tablet 08/03/16 Amb Orders for Discharge: Basic Metabolic Panel Time Frame: 10 Days, Location: Determined By Patient CBC Time Frame: 10 Days, Location: Determined By Patient Iron & Iron Binding Capacity Time Frame: 10 Days, Location: Determined By Patient
[2016-08-03 11:16] VITALS: BP 136/60
== END 2016-08-03 12:33 | disposition home or self-care (01) ==
LOC: MS 12:16
PROVIDERS: ADMIT Internal Medicine; ATTEND Internal Medicine
DX: E86.0 Dehydration (principal); I12.9 Hypertensive chronic kidney disease with stage 1 through stage 4 chronic kidney disease, or unspecified chronic kidney disease; N18.3 Chronic kidney disease, stage 3 (moderate); D63.1 Anemia in chronic kidney disease; E87.5 Hyperkalemia; D50.9 Iron deficiency anemia, unspecified; E87.0 Hyperosmolality and hypernatremia; E78.5 Hyperlipidemia, unspecified; K21.9 Gastro-esophageal reflux disease without esophagitis
CPT/HCPCS: 36415; 80048; 85025; 96361; 96374; 96375; G0378; G0379